=== PATIENT | female | born 1945 | race Caucasian/White ===

== ENCOUNTER → 2017-09-22 | Outpatient (CLI) | payer MEDICARE ==
[~2017-09-22] MED LIST: B-121000 MCG PO; D3 DOTS2000 UNIT PO; JENTADUETO 2.51 EAC1 PO; LISINOPRIL2.5 MG PO; NORVASC5 MG PO; REGADENOSON 0.4 MG/5 ML SYR IV ONE; SIMVASTATIN80 MG PO; ZOCOR5 MG PO
--- NOTE | 2017-09-22 18:59 | Cardiology Report ---
DATE OF STUDY: September 22, 2017 LEXISCAN NUCLEAR STRESS TEST INDICATION: Chest pain. DESCRIPTION OF PROCEDURE: After informed consent, patient brought to the stress lab. She was given 10.9 mCi of technetium 99 Myoview, and myocardial perfusion SPECT images were obtained in the horizontal long-axis, short-axis and vertical long-axis views. Subsequently patient was given 0.4 mg Lexiscan over 10 seconds. Patient was given 32.7 mCi of technetium 99 Myoview intravenously and myocardial perfusion SPECT images were obtained in the horizontal long-axis, short-axis and vertical long-axis views. Gating images were also obtained. Patient tolerated the procedure without any complications. REPORT: Baseline EKG shows sinus rhythm at 77 beats per minute. Normal axis, normal intervals and no acute ST-T changes. PARAMETERS 1. Resting heart rate is 90 beats per minute. 2. Maximum heart rate is 130 beats per minute. 3. Resting blood pressure is 118/52 mmHg. 4. Maximum blood pressure 145/57 mmHg. REASON FOR TERMINATION: End point attained. INTERPRETATION 1. Negative chest pain. 2. Negative for arrhythmias. 3. Blood pressure response consistent with Lexiscan. 4. Borderline ST-T changes seen during Lexiscan infusion compared to baseline. 5. Analysis of SPECT images reveals uniform radioisotope uptake in all segments of myocardium without any significant perfusion defects. CONCLUSIONS: 1. No evidence of significant ischemia or infarction on this study. 2. No wall motion abnormalities. 3. Overall ejection fraction is 74%. Job#: [id number]
== END ==
LOC: NM 07:38
DX: Z82.49 Family history of ischemic heart disease and other diseases of the circulatory system (principal)
CPT/HCPCS: 36415; 78452; 82948; 93017; A9502

== ENCOUNTER 2019-04-26 11:12 | Emergency (ER) | payer MEDICARE ==
[~2019-04-26] VITALS: Ht 157.5 cm; Wt 53.5 kg
[~2019-04-26 11:12] MED LIST changes: -REGADENOSON 0.4 MG/5 ML SYR IV ONE
--- OUTSIDE RECORDS SUMMARY | 2019-04-26 11:16 | XMS REPORT ---
Author Author [facility] Address Unknown Phone Unavailable Care Team Providers Care Office Employee Name Role Phone JEREMY CASTILLO Unavailable Unavailable Problems This patient has no known problems. Allergies, Adverse Reactions, Alerts This patient has no known allergies or adverse reactions. Medications This patient has no known medications. Results Test Description Test Time Test Comments Text Results Atomic Results Result Comments Stress Test - Treadmill ONLY [place] [address] Patient Name : MELINA MANN MR #: [id number] : 1945 Age/Sex: 72/F Adm Physician : JEREMY CASTILLO MD Admit Date : Location : ID Room/Bed : REPORT: Cardiology Report DATE OF STUDY: September 22, 2017 LEXISCAN NUCLEAR STRESS TEST INDICATION: Chest pain. DESCRIPTION OF PROCEDURE: After informed consent, patient brought to the stress lab. She was given 10.9 mCi of technetium 99 Myoview, and myocardial perfusion SPECT images were obtained in the horizontal long-axis, short-axis and vertical long-axis views. Subsequently patient was given 0.4 mg Lexiscan over 10 seconds. Patient was given 32.7 mCi of technetium 99 Myoview intravenously and myocardial perfusion SPECT images were obtained in the horizontal long-axis, short-axis and vertical long-axis views. Gating images were also obtained. Patient tolerated the procedure without any complications. REPORT: Baseline EKG shows sinus rhythm at 77 beats per minute. Normal axis, normal intervals and no acute ST-T changes. PARAMETERS 1. Resting heart rate is 90 beats per minute. 2. Maximum heart rate is 130 beats per minute. 3. Resting blood pressure is 118/52 mmHg. 4. Maximum blood pressure 145/57 mmHg. REASON FOR TERMINATION: End point attained. INTERPRETATION 1. Negative chest pain. 2. Negative for arrhythmias. 3. Blood pressure response consistent with Lexiscan. 4. Borderline ST-T changes seen during Lexiscan infusion compared to baseline. 5. Analysis of SPECT images reveals uniform radioisotope uptake in all segments of myocardium without any significant perfusion defects. CONCLUSIONS: 1. No evidence of significant ischemia or infarction on this study. 2. No wall motion abnormalities. 3. Overall ejection fraction is 74%. Job#: [id number] Signature Date Dictated By: JEREMY CASTILLO MD Transcribed By: JEREMY on 09/22/17 <Electronically signed by JEREMY CASTILLO MD><<Signature on File>>09/23/17 0957 COPY TO:
--- NOTE | 2019-04-26 12:34 | Diagnostic Imaging Report ---
CT BRAIN WO HISTORY: Fall COMPARISON: Report from head CT dated 07/10/2015 Technique: Noncontrast axial scans were obtained from skull base to the vertex. Coronal and sagittal reconstructions obtained from the axial data. One or more of the following dose reduction techniques were used: Automated exposure control, adjustment of the mA and/or kV according to patient size, and/or utilization of iterative reconstruction technique. DISCUSSION: Scalp/Skull: Small right frontal scalp hematoma is not associated with a calvarial fracture. Brain sulci: Mildly prominent. Ventricles: Compensatory dilatation. Extra-axial spaces: No masses or fluid collections. Carotid siphon calcifications are present. Parenchyma: Mild to moderate bilateral deep white matter hypodensity is likely chronic microvascular ischemic change. Multiple old lacunar infarcts along the right hawkins radiata, upper right insula, and right inferior parietal lobule may be from watershed ischemia. Otherwise, no masses, hemorrhage, or large vascular territory acute infarct. Dural sinuses: No abnormal densities. Sellar/Suprasellar region: Intact. Skull base: Intact. Incidental findings: None. IMPRESSION: 1. No acute intracranial abnormalities. 2. Mild to moderate supratentorial chronic microvascular ischemic change. Mild generalized cerebral and cerebellar volume loss. 3. Multiple old lacunar infarcts along the right hawkins radiata, upper right insula, and right inferior parietal lobule may be from remote/chronic watershed ischemia. Signed by: Dr. Mo Watkins M.D. on 04/26/2019 12:31 PM
--- NOTE | 2019-04-26 12:36 | Diagnostic Imaging Report ---
CT CERVICAL SPINE WO HISTORY: Fall COMPARISON: Concurrent head CT; report from cervical spine CT dated 07/10/2015 TECHNIQUE: CT of the cervical spine without contrast. Sagittal and coronal reformations were created. One or more of the following dose reduction techniques were used: Automated exposure control, adjustment of the mA and/or kV according to patient size, and/or utilization of iterative reconstruction technique. FINDINGS: Mild bone demineralization limits evaluation. Cervical lordosis is straightened. There is no significant scoliosis. No definite acute fracture or compression deformity is seen. The craniocervical junction is intact. No gross spinal canal masses are seen. The paravertebral and paraspinal soft tissues are unremarkable. Mild to moderate multilevel spondylosis is most prominent at C5-C6. Minimal grade 1 anterolisthesis of C6 on C7 and C7 on T1 is due to facet arthrosis. Mild atlantoaxial arthrosis is present as well. There is scarring in the lung apices. Mild to moderate bilateral carotid bulb calcified plaque is present. IMPRESSION: 1. No acute osseous abnormalities. 2. Mild to moderate multilevel spondylosis, most prominent at C5-C6. Signed by: Dr. Mo Watkins M.D. on 04/26/2019 1:00 PM
[2019-04-26 13:46] VITALS: BP 143/67
== END 2019-04-26 13:47 | disposition home or self-care (01) ==
LOC: ER 11:12
DX: S01.111A Laceration without foreign body of right eyelid and periocular area, initial encounter (principal); W01.198A Fall on same level from slipping, tripping and stumbling with subsequent striking against other object, initial encounter; Y92.008 Other place in unspecified non-institutional (private) residence as the place of occurrence of the external cause; E11.9 Type 2 diabetes mellitus without complications; E78.5 Hyperlipidemia, unspecified; E03.9 Hypothyroidism, unspecified
CPT/HCPCS: 70450; 72125; 99283

== ENCOUNTER 2019-04-30 10:00 | Inpatient (IN) | payer MEDICARE ==
[~2019-04-30] VITALS: Ht 157.5 cm; Wt 59.9 kg
[2019-04-30] MEDS ORDERED: VITAMIN D34000 UNIT PO (10:25)
[2019-04-30] MEDS ORDERED: ATORVASTATIN CA20 MG PO (10:25)
[2019-04-30] MEDS ORDERED: LEVEMIR100 UNIT/1 SQ (10:25)
[2019-04-30] MEDS ORDERED: LEVOTHYROXINE25 MCG PO (10:25)
[2019-04-30] MEDS ORDERED: FERROUS SULFAT325 MG PEG (10:25)
[2019-04-30] MEDS ORDERED: SODIUM CHLORIDE 0.9% 500ML 500 ML IV STA (10:57)
[2019-04-30 11:54] LABS: BASOPHILS % 0.3 % (0.0-1.0); EOSINOPHILS % 0.2 % (0.0-6.0); HEMATOCRIT 41.5 % (34.2-44.1); HEMOGLOBIN 13.2 g/dL (12.0-16.0); LYMPHOCYTES % 8.3 % (18.0-39.1); MEAN CORPUSCULAR HEMOGLOBIN 26.3 pg (28-32); MEAN CORPUSCULAR HGB CONC 31.8 g/dL (31-35); MEAN CORPUSCULAR VOLUME 82.8 fL (81-99); MONOCYTES # (AUTO) 0.5 (0.2-0.8); MONOCYTES % 4.3 % (4.4-11.3); NEUTROPHILS # (AUTO) 10.6 (2.1-6.9); NEUTROPHILS % 86.7 % (38.7-80.0); PLATELET COUNT 240 x10e3/uL (140-360); RED BLOOD COUNT 5.01 x10e6/uL (3.6-5.1); RED CELL DISTRIBUTION WIDTH 14.6 % (11.7-14.4)
--- NOTE | 2019-04-30 11:58 | Diagnostic Imaging Report ---
Examination: Single AP view of the chest. COMPARISON: None. INDICATION: Weakness DISCUSSION: Lungs are well-inflated and without focal consolidation, pleural effusion, or pneumothorax. Bilateral calcified granulomata and calcified left hilar lymph nodes. Otherwise normal cardiomediastinal contour with the exception of mild tortuosity of the thoracic aorta. No acute osseous abnormality. IMPRESSION: 1. No acute cardiopulmonary abnormalities. Signed by: Dr. Mc Leger M.D. on 04/30/2019 11:54 AM
[2019-04-30 12:27] LABS: INR 0.88; PROTHROMBIN TIME 12.4 seconds (11.9-14.5)
[2019-04-30 12:28] LABS: PARTIAL THROMBOPLASTIN TIME 25.4 seconds (23.8-35.5)
[2019-04-30 12:38] LABS: ALBUMIN/GLOBULIN RATIO 1.1 (0.8-2.0); ANION GAP 15.6 mmol/L (8-16); CALCIUM 10.4 mg/dL (8.4-10.2); CREATININE, SERUM 1.13 mg/dL (0.57-1.11); POTASSIUM 3.6 mmol/L (3.5-5.1)
[2019-04-30 12:46] LABS: CREATINE KINASE MB 2.6 ng/mL (0-5.0)
[2019-04-30 12:56] LABS: BILIRUBIN,URINE SMALL (NEGATIVE); CLARITY,URINE CLEAR (CLEAR); COLOR,URINE YELLOW (YELLOW); KETONES,URINE 1+ (NEGATIVE); LEUKOCYTE ESTERASE ,URINE NEGATIVE (NEGATIVE); NITRITE,URINE NEGATIVE (NEGATIVE); PROTEIN,URINE DIPSTICK 1+ (NEGATIVE); URINE UROBILINOGEN 0.2 mg/dL (0.2 - 1)
[2019-04-30 13:00] LABS: RBC,URINE 21-50 /HPF (0-5); WBC,URINE (MAN) 0-5 /HPF (0-5)
[2019-04-30 13:01] LABS: BACTERIA,URINE FEW /HPF; EPITHELIAL CELLS,URINE FEW /LPF
--- NOTE | 2019-04-30 14:56 | Diagnostic Imaging Report ---
EXAMINATION: CT of the abdomen and pelvis without contrast. TECHNIQUE: Spiral CT images of the abdomen and pelvis were performed from the lung bases to the lesser trochanters. No intravenous contrast was given per renal stone protocol. Coronal and sagittal reformatted images were obtained. COMPARISON: None. CLINICAL HISTORY:Weakness, hematuria DISCUSSION: ABSENCE OF INTRAVENOUS CONTRAST DECREASES SENSITIVITY FOR DETECTION OF FOCAL LESIONS AND VASCULAR PATHOLOGY. ABDOMEN/PELVIS: LOWER THORAX: Subsegmental atelectasis in the dependent lower lobes. HEPATOBILIARY:1.1 cm cyst in segment 4A. No additional focal hepatic lesion. No intrahepatic biliary ductal dilatation. The gallbladder is collapsed around radiopaque calculi. No pericholecystic inflammation. SPLEEN: Multiple calcified granulomata. PANCREAS: No focal masses or ductal dilatation. ADRENALS: No adrenal nodules. KIDNEYS/URETERS: 4 mm calculus within the left upper pole collecting system seen on coronal image 39. No additional renal, ureteral, or bladder calculi. Moderate bilateral hydronephrosis with normal caliber ureters. No focal renal mass lesions. PELVIC ORGANS/BLADDER: Urinary bladder is unremarkable. Uterus is retroflexed with multiple coarse calcifications likely representing degenerated fibroids. No adnexal mass. PERITONEUM/RETROPERITONEUM: No ascites or pneumoperitoneum. LYMPH NODES: No pelvic sidewall, retroperitoneal, or mesenteric lymphadenopathy. VESSELS: Limited evaluation without intravenous contrast. Atherosclerotic calcification of the abdominal aorta without aneurysmal dilatation. GI TRACT: The large bowel shows no evidence of distention or wall thickening. Gas and fecal material are noted throughout. The appendix is normal.. The stomach is collapsed with prominent rugal folds. Disproportionate wall thickening of the gastric antrum/lower region as seen on series 3 image 42. No small bowel dilatation to suggest obstruction. BONES AND SOFT TISSUES: Diffuse osteopenia. Postsurgical changes related to operative fixation of the proximal right femur result in streak artifact limiting evaluation of the pelvis. No osseous destructive lesions. No focal soft tissue abnormalities. IMPRESSION: 4 mm nonobstructing left upper pole renal calculus. Moderate bilateral hydronephrosis without hydroureter or obstructing calculus identified. 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 Multiple bilateral peripelvic cysts mimicking hydronephrosis is an additional though less likely consideration. CT urogram may be obtained on a nonemergent basis for further evaluation if clinically warranted. Cholelithiasis without CT findings of acute cholecystitis. Disproportionate wall thickening of the gastric antrum and pylorus may relate to underdistention. However, gastritis is an additional consideration. Upper endoscopy should be considered for further evaluation. Signed by: Dr. Mc Leger M.D. on 04/30/2019 2:52 PM
[2019-04-30] MEDS ORDERED: DEXTROSE 50% SYRINGE 50 ML IV PRN (15:15)
[2019-04-30] MEDS ORDERED: ONDANSETRON HCL INJ 2MG/ML 2ML 2 MG/ML VIAL IV PRN (15:15)
[2019-04-30] MEDS: SODIUM CHLORIDE 0.9% 1000ML 1,000 ML IV SCH (15:33)
[2019-04-30] MEDS: INSULIN LISPRO 100 UNIT/1 ML 3ML VIAL SQ SCH ×2 (16:15→21:00)
[2019-04-30 16:30] VITALS: BP 174/72
[2019-04-30 16:37] VITALS: BP 174/72
--- NOTE | 2019-04-30 17:27 | NUR ---
Patients blood sugar 54, after dinner, patient given additional juice, will recheck in 1 hour, patient alert and asyptomatic
[2019-04-30 17:35] VITALS: BP 174/72
[2019-04-30 20:00] VITALS: BP 147/65
[2019-04-30 21:03] LABS: CREATINE KINASE MB 2.3 ng/mL (0-5.0)
[2019-04-30 21:47] VITALS: BP 147/65
[2019-04-30 21:48] VITALS: BP 147/65
[2019-05-01] VITALS (8 sets, daily range): BP systolic 131–168; BP diastolic 60–67
[2019-05-01] MEDS: SODIUM CHLORIDE 0.9% 1000ML 1,000 ML IV SCH ×4 (00:45→21:10)
--- NOTE | 2019-05-01 05:40 | NUR ---
Patient transferred to room 113.
[2019-05-01 05:47] LABS: BASOPHILS # (AUTO) 0.1 (0.0-0.1); BASOPHILS % 0.4 % (0.0-1.0); EOSINOPHILS # (AUTO) 0.1 (0.0-0.4); HEMOGLOBIN 10.9 g/dL (12.0-16.0); LYMPHOCYTES # (AUTO) 1.9 (1.0-3.2); MEAN CORPUSCULAR HEMOGLOBIN 25.8 pg (28-32); MEAN CORPUSCULAR HGB CONC 30.3 g/dL (31-35); MEAN CORPUSCULAR VOLUME 85.1 fL (81-99); MONOCYTES # (AUTO) 0.7 (0.2-0.8); NEUTROPHILS # (AUTO) 8.5 (2.1-6.9); NEUTROPHILS % 75.1 % (38.7-80.0); PLATELET COUNT 202 x10e3/uL (140-360); RED BLOOD COUNT 4.23 x10e6/uL (3.6-5.1); RED CELL DISTRIBUTION WIDTH 14.5 % (11.7-14.4)
[2019-05-01 06:42] LABS: CREATINE KINASE MB 1.4 ng/mL (0-5.0)
[2019-05-01 07:01] LABS: ALBUMIN/GLOBULIN RATIO 1.2 (0.8-2.0); ANION GAP 14.2 mmol/L (8-16); CALCIUM 8.7 mg/dL (8.4-10.2); CREATININE, SERUM 0.93 mg/dL (0.57-1.11); POTASSIUM 3.2 mmol/L (3.5-5.1)
[2019-05-01] MEDS: INSULIN LISPRO 100 UNIT/1 ML 3ML VIAL SQ SCH ×4 (07:30→19:57)
--- NOTE | 2019-05-01 08:18 | NUR ---
H&P cc: weakness and fall HPI: 74yoF, PCP DrOrahood, developed weakness, unable to get up from cough. Pt fell 4 day sprior, with trauma ot right scalp. Lives alone. Urine output unchanged. PM: DM, HTN, HLD, hypothyroidism, hip PShx: hip, nose Allergies see emr Fh/Sh; single; no etoh/cigs; lives alone med;s see MAR ROS; no f/c/s/N/V/D/WALKER/vision changes/cp/sob/skin rash V/S; revd PE tired appearing right periorbital region with bruising ns1s2 mod bs soft nt nd no e/t a&ox3; alonso skin dry n. affect labs/meds; revd A/P: OPAL Hypokalemia Left nephrolithiasis 4mm B/L hydronephrosis; chronic outlet obx? Fall Cholelithiasis Dm HTn Hypothyroidism PLAN IVF; Replace K CT brain PT consult I/O Prop: scd Dispo; f/u Hunter huizar MD, PhD.
[2019-05-01] MEDS: LEVOTHYROXINE SODIUM 25 MCG TABLET PO SCH (08:54)
[2019-05-01] MEDS: FERROUS SULFATE 325 MG TAB PEG SCH (08:54)
[2019-05-01 09:13] LABS: CHOL/HDL RATIO 3.6 (3.0-3.6)
--- NOTE | 2019-05-01 19:17 | NUR ---
PATIENT REFUSED SCD'S
[2019-05-01] MEDS: INSULIN GLARGINE 100 UNITS/ML VIAL SQ SCH (20:37)
[2019-05-01] MEDS: ATORVASTATIN 20 MG TAB PO SCH (20:37)
[2019-05-02] VITALS (7 sets, daily range): BP systolic 135–159; BP diastolic 59–74
[2019-05-02] MEDS: LEVOTHYROXINE SODIUM 25 MCG TABLET PO SCH (05:44)
--- NOTE | 2019-05-02 07:25 | NUR ---
IM- progress note O/N no events ROS; no f/c/s/N/V/D/WALKER/vision changes/cp/sob/skin rash V/S; revd PE tired appearing right periorbital region with bruising ns1s2 mod bs soft nt nd no e/t a&ox3; alonso skin dry n. affect labs/meds; revd A/P: OPAL Hypokalemia Left nephrolithiasis 4mm B/L hydronephrosis; chronic outlet obx? Fall Cholelithiasis Dm HTn Hypothyroidism PLAN IVF; Replace K CT brain PT consult I/O Prop: scd Dispo; f/u improving; f/u labs; Hunter Perez MD, PhD.
[2019-05-02] MEDS ORDERED: BISACODYL 5 MG TAB EC PO ONE (07:55)
[2019-05-02] MEDS: SODIUM CHLORIDE 0.9% 1000ML 1,000 ML IV SCH ×2 (07:59→17:35)
[2019-05-02 08:10] LABS: BASOPHILS # (AUTO) 0.1 (0.0-0.1); BASOPHILS % 0.5 % (0.0-1.0); EOSINOPHILS # (AUTO) 0.2 (0.0-0.4); EOSINOPHILS % 1.5 % (0.0-6.0); HEMATOCRIT 38.2 % (34.2-44.1); HEMOGLOBIN 12.2 g/dL (12.0-16.0); LYMPHOCYTES % 19.2 % (18.0-39.1); MEAN CORPUSCULAR HEMOGLOBIN 26.3 pg (28-32); MEAN CORPUSCULAR HGB CONC 31.9 g/dL (31-35); MEAN CORPUSCULAR VOLUME 82.5 fL (81-99); MONOCYTES # (AUTO) 0.6 (0.2-0.8); NEUTROPHILS # (AUTO) 7.4 (2.1-6.9); NEUTROPHILS % 72.5 % (38.7-80.0); PLATELET COUNT 210 x10e3/uL (140-360); RED BLOOD COUNT 4.63 x10e6/uL (3.6-5.1); RED CELL DISTRIBUTION WIDTH 14.4 % (11.7-14.4)
[2019-05-02 08:30] LABS: ANION GAP 11.5 mmol/L (8-16); BLOOD UREA NITROGEN 15 mg/dL (7-26); BUN/CREATININE RATIO 17 (6-25); CALCIUM 8.9 mg/dL (8.4-10.2); CARBON DIOXIDE 21 mmol/L (22-29); CHLORIDE 112 mmol/L (98-107); EST GLOMERULAR FILTRATION RATE > 60 ML/MIN (60-); GLUCOSE 152 mg/dL (74-118); POTASSIUM 3.5 mmol/L (3.5-5.1); SODIUM 141 mmol/L (136-145)
[2019-05-02] MEDS: FERROUS SULFATE 325 MG TAB PEG SCH (10:37)
[2019-05-02] MEDS ORDERED: ONDANSETRON HCL 4 MG ORAL DISINTEGRATING TAB PO PRN (11:00)
[2019-05-02] MEDS: INSULIN LISPRO 100 UNIT/1 ML 3ML VIAL SQ SCH ×4 (11:04→20:40)
--- NOTE | 2019-05-02 20:12 | NUR ---
RECEIVED PT IN BEDAOX3 VERY WEAK RESPIRATIONS ARE EVEN AND UNLABORED RT FA20 G NS AT 100.CALL LIGHT WITH IN REACH .CONTINUE TO MONITOR
[2019-05-02] MEDS: INSULIN GLARGINE 100 UNITS/ML VIAL SQ SCH (20:41)
[2019-05-02] MEDS: ATORVASTATIN 20 MG TAB PO SCH (20:46)
[2019-05-03] VITALS (7 sets, daily range): BP systolic 138–159; BP diastolic 67–92
[2019-05-03] MEDS: SODIUM CHLORIDE 0.9% 1000ML 1,000 ML IV SCH ×2 (03:10→13:36)
--- NOTE | 2019-05-03 05:41 | NUR ---
D/C summary Principal Dx: OPAL Hypokalemia Left nephrolithiasis 4mm B/L hydronephrosis; chronic outlet obx? Fall Cholelithiasis Secondary Dx: Dm HTn Hypothyroidism PLAN IVF; Replace K CT brain PT consult I/O Prop: scd Dispo; f/u improving; f/u labs; Hba1c/LDL 8.2/72 d/c home f/u pcp 1 week and 5-7 days stable d/c>35mins Hunter Perez MD, PhD.
--- NOTE | 2019-05-03 05:50 | NUR ---
D/C summary Principal dx: OPAL Hypokalemia Left nephrolithiasis 4mm B/L hydronephrosis; chronic outlet obx? Fall Cholelithiasis severe physical deconditioning SEconary Dx: Dm HTn Hypothyroidism PLAN IVF; Replace K CT brain PT consult I/O Prop: scd Dispo; f/u improving; f/u labs; 05/03 severe physical deconditioning- hold d/c; SNF eval; check stool - new diarrhea? d/c to snf f/u pcp 1 week stable d/c>35mins Hunter Perez MD, PhD.
[2019-05-03] MEDS: LEVOTHYROXINE SODIUM 25 MCG TABLET PO SCH (06:00)
--- NOTE | 2019-05-03 06:13 | NUR ---
HAS SEEN THE PT NOW AND PT HAS DIARRHEA .ORDERED C-DIFF AND FLAGYL PT HAS DIFFICULTY WALKING CALL LIGHT WITH IN REACH .CONTINUE TO MONITOR
[2019-05-03] MEDS: METRONIDAZOLE 500MG/NS 100ML 100 ML IV SCH ×2 (06:56→13:33)
--- NOTE | 2019-05-03 07:25 | NUR ---
upon rounds pt asleep resp even and unlabored at this time no distress noted, pt easily aroused to name, call light in reach.
--- NOTE | 2019-05-03 07:53 | NUR ---
BEDSIDE REPORT GIVEN ON COMING TO THE REPORT
[2019-05-03] MEDS: FERROUS SULFATE 325 MG TAB PEG SCH (08:42)
[2019-05-03] MEDS: INSULIN LISPRO 100 UNIT/1 ML 3ML VIAL SQ SCH ×3 (10:52→17:14)
--- NOTE | 2019-05-03 11:52 | NUR ---
SIGNED CHOICE FOR [facility] JEN GRANADOS PICKED UP CLINICALS WILL REVIEW
--- NOTE | 2019-05-03 14:10 | NUR ---
FAXED HEAD CT TO FACILITY
--- NOTE | 2019-05-03 16:47 | NUR ---
[facility] FACILITY DISCHARGE INFORMATION PATIENT HAS BEEN ACCEPTED TO: NAME: [facility] [address]: [id number] [place] [address] ACCEPTING LASERIST: N/A ACCEPTING MD: ROOM: 312B NURSE CALL REPORT TO: [phone] IMM SIGNED AND OBTAINED (if applicable): THE FOLLOWING DOCUMENTS MUST ACCOMPANY PATIENT FOR TRANSFER: COPIED CHART: SANITARY PLUMBER RTF: ZOEY WHITE [id number] DNR: N/A
--- NOTE | 2019-05-03 17:50 | NUR ---
report called to Ema at [facility], pt going to room 213 b.
--- NOTE | 2019-05-03 19:30 | NUR ---
report given to on coming nurse, pt stable at this time.
--- NOTE | 2019-05-03 19:51 | NUR ---
RECEIVED PT IN BED AOX2 .NO ACUTE DISTRESS NOTED PLAN TO DIS CHARGE THE PT WITH IV FOR ABT .CALL LIGHT WITH IN REACH .CONTINUE TO MONITOR
--- NOTE | 2019-05-03 20:37 | NUR ---
PT IS DISCHARGED TO [facility] .AMBULANCE HAS TAKEN THE PT .
== END 2019-05-03 20:24 | DRG 684 ==
LOC: ER 10:00 → ERHOLD 15:18 → IMCU 16:11 → MED/SURG 05-01 05:33 → MED/SURG3 05-02 14:51 → OBSVTOIN 05-03 05:49
PROVIDERS: ADMIT Internal Medicine; ATTEND Internal Medicine
DX: N17.9 Acute kidney failure, unspecified (principal); E86.0 Dehydration; E11.9 Type 2 diabetes mellitus without complications; E78.5 Hyperlipidemia, unspecified; E03.9 Hypothyroidism, unspecified; R53.1 Weakness; I10 Essential (primary) hypertension; E87.6 Hypokalemia; K80.20 Calculus of gallbladder without cholecystitis without obstruction; Z88.5 Allergy status to narcotic agent; Z88.8 Allergy status to other drugs, medicaments and biological substances; Z83.3 Family history of diabetes mellitus; Z82.49 Family history of ischemic heart disease and other diseases of the circulatory system; Z91.81 History of falling; Z87.448 Personal history of other diseases of urinary system; N13.39 Other hydronephrosis
CPT/HCPCS: 36415; 71045; 74176; 80048; 80053; 80061; 81001; 82550; 82553; 82948; 83036; 83735; 84443; 84484; 85025; 85610; 85730; 87493; 93005; 97139; 99284; G0378; J7030; J7040

== ENCOUNTER 2019-06-30 13:54 | Inpatient (IN) | payer MEDICARE ==
[~2019-06-30] VITALS: Ht 157.5 cm; Wt 59.9 kg
[~2019-06-30 13:54] MED LIST changes: +ATORVASTATIN CA20 MG PO; +FERROUS SULFAT325 MG PEG; +LEVEMIR100 UNIT/1 SQ; +LEVOTHYROXINE25 MCG PO; +VITAMIN D34000 UNIT PO
[2019-06-30 15:12] LABS: HEMOGLOBIN 14.2 g/dL (12.0-16.0); RED BLOOD COUNT 5.32 x10e6/uL (3.6-5.1)
[2019-06-30 15:13] LABS: BASOPHILS % 0.2 % (0.0-1.0); HEMATOCRIT 44.5 % (34.2-44.1); LYMPHOCYTES # (AUTO) 0.6 (1.0-3.2); LYMPHOCYTES % 4.1 % (18.0-39.1); MEAN CORPUSCULAR HEMOGLOBIN 26.7 pg (28-32); MEAN CORPUSCULAR HGB CONC 31.9 g/dL (31-35); MEAN CORPUSCULAR VOLUME 83.6 fL (81-99); MONOCYTES # (AUTO) 0.4 (0.2-0.8); MONOCYTES % 2.6 % (4.4-11.3); NEUTROPHILS # (AUTO) 14.5 (2.1-6.9); NEUTROPHILS % 92.5 % (38.7-80.0); PLATELET COUNT 242 x10e3/uL (140-360); RED CELL DISTRIBUTION WIDTH 14.8 % (11.7-14.4)
[2019-06-30 15:35] LABS: ALBUMIN 4.2 g/dL (3.5-5.0); ALBUMIN/GLOBULIN RATIO 1.1 (0.8-2.0); BLOOD UREA NITROGEN 16.48 mg/dL (7-26); CALCIUM 10.2 mg/dL (8.4-10.2); CREATININE, SERUM 1.82 mg/dL (0.57-1.11)
[2019-06-30] MEDS ORDERED: SODIUM CHLORIDE 0.9% 1000ML 1,000 ML IV STA (18:40)
[2019-06-30 20:16] LABS: CLARITY,URINE SL CLOUDY (CLEAR); COLOR,URINE YELLOW (YELLOW); LEUKOCYTE ESTERASE ,URINE NEGATIVE (NEGATIVE); NITRITE,URINE NEGATIVE (NEGATIVE); PROTEIN,URINE DIPSTICK 1+ (NEGATIVE)
[2019-06-30 20:17] LABS: BILIRUBIN,URINE NEGATIVE (NEGATIVE); KETONES,URINE 1+ (NEGATIVE); URINE UROBILINOGEN 0.2 mg/dL (0.2 - 1)
[2019-06-30 20:23] LABS: BACTERIA,URINE MODERATE /HPF; EPITHELIAL CELLS,URINE FEW /LPF; WBC,URINE (MAN) 0-5 /HPF (0-5)
--- NOTE | 2019-06-30 20:23 | Diagnostic Imaging Report ---
EXAM: ABDOMEN 2 VIEW DATE: 06/30/2019 6:40 PM INDICATION: ^r/o constipation ^[id number] ^1900 COMPARISON: CT abdomen/pelvis, 04/30/2019 FINDINGS: 2 views of the abdomen were obtained supine and upright. There is nonspecific distribution of air in the small and large bowel with moderate retained stool mainly in the left colon. No pneumoperitoneum. Small left renal calculus described on the CT is not seen on the plain radiographs. Right upper quadrant calcification may represent gallstone as noted on previous CT. Lung bases clear. Surgical hardware is seen in the right hip. IMPRESSION: No evidence for bowel dilatation or bowel obstruction. No pneumoperitoneum. Moderate retained stool in the left colon may signify constipation. Signed by: Dr. Isael Taylor M.D. on 06/30/2019 8:19 PM
[2019-06-30] MEDS ORDERED: ONDANSETRON HCL INJ 2MG/ML 2ML 2 MG/ML VIAL IV ONE (20:30)
[2019-06-30] MEDS ORDERED: SODIUM CHLORIDE 0.9% 500ML 500 ML IV ONE (20:30)
[2019-06-30] MEDS ORDERED: CEFTRIAXONE SOD 1 GM/NS 50 ML 50 ML IV SCH (20:45)
[2019-06-30] MEDS ORDERED: DEXTROSE 50% SYRINGE 50 ML IV PRN (20:45)
[2019-06-30] MEDS ORDERED: SODIUM CHLORIDE 0.9% 1000ML 1,000 ML IV ONE (20:45)
[2019-06-30 23:40] VITALS: BP 130/89
[2019-07-01] VITALS (8 sets, daily range): BP systolic 114–145; BP diastolic 56–75
[2019-07-01] MEDS ORDERED: SODIUM CHLORIDE 0.9% 1000ML 1,000 ML ONE (00:40)
[2019-07-01] MEDS: INSULIN LISPRO 100 UNIT/1 ML 3ML VIAL SQ SCH ×5 (01:08→20:38)
[2019-07-01 01:25] LABS: CREATINE KINASE MB 2.7 ng/mL (0-5.0)
[2019-07-01 05:22] LABS: BASOPHILS % 0.2 % (0.0-1.0); EOSINOPHILS # (AUTO) 0.1 (0.0-0.4); EOSINOPHILS % 0.6 % (0.0-6.0); HEMATOCRIT 39.2 % (34.2-44.1); HEMOGLOBIN 12.1 g/dL (12.0-16.0); LYMPHOCYTES # (AUTO) 1.2 (1.0-3.2); LYMPHOCYTES % 5.3 % (18.0-39.1); MEAN CORPUSCULAR HEMOGLOBIN 26.4 pg (28-32); MEAN CORPUSCULAR HGB CONC 30.9 g/dL (31-35); MEAN CORPUSCULAR VOLUME 85.4 fL (81-99); MONOCYTES # (AUTO) 1.4 (0.2-0.8); MONOCYTES % 6.2 % (4.4-11.3); NEUTROPHILS % 86.8 % (38.7-80.0); PLATELET COUNT 213 x10e3/uL (140-360); RED BLOOD COUNT 4.59 x10e6/uL (3.6-5.1)
[2019-07-01 05:42] LABS: ALBUMIN 3.4 g/dL (3.5-5.0); ALBUMIN/GLOBULIN RATIO 1.1 (0.8-2.0); CALCIUM 8.8 mg/dL (8.4-10.2); CREATININE, SERUM 1.58 mg/dL (0.57-1.11)
[2019-07-01 06:21] LABS: CREATINE KINASE MB 1.6 ng/mL (0-5.0)
--- NOTE | 2019-07-01 06:21 | NUR ---
H&P cc: fatigue HPI: 74yoF, PCP DrOrahood, developed fatigue after vomiting for 2 days. Recently d/c from SNF. Found to be dehydrated. PM: DM2, HTN, HLD, hypothyroidism, hip, hypokalemmia, nephrolithiasis, B/L hydronephrosis, physical deconditioning PShx: hip, nose Allergies see emr Fh/Sh; single; no etoh/cigs; lives alone med;s see MAR ROS; no f/c/s/N/V/D/WALKER/vision changes/cp/sob/skin rash V/S; revd PE tired appearing anicteric ns1s2 mod bs soft Mild diffuse tenderness; nd no e/t a&ox3; alonso skin dry n. affect labs/meds; revd A/P: Acute Likely Bacterial Gastroenteritis OPAL Metabolic acidosis Dehydration Hx B/L hydronoephrosis DM2 Hypothyroidism PLAN IVF; IV abx PT consult Home meds Prop: heparin/pepcid Dispo; f/u Hunter Perez MD, PhD.
--- NOTE | 2019-07-01 07:05 | NUR ---
Patient laying in bed with HOB elevated greater than 30 degrees. Respirations are even and unlabored. Fluids infusing through the PIV, with no complications. Not nauseous at this moment. Bed low, wheels locked, side rails up and call light within reach.
[2019-07-01 07:09] LABS: CHOL/HDL RATIO 2.8 (3.0-3.6)
[2019-07-01] MEDS: PIPER-TAZ 3.375 GM 50 ML IV SCH ×4 (08:45→23:38)
[2019-07-01] MEDS: LEVOTHYROXINE SODIUM 25 MCG TABLET PO SCH (09:03)
[2019-07-01] MEDS: FERROUS SULFATE 325 MG TAB PEG SCH (09:04)
[2019-07-01] MEDS: ATORVASTATIN 20 MG TAB PO SCH (09:04)
[2019-07-01] MEDS: ONDANSETRON HCL INJ 2MG/ML 2ML 2 MG/ML VIAL IV PRN (09:13)
[2019-07-01 14:01] LABS: CREATINE KINASE MB 1.6 ng/mL (0-5.0)
--- NOTE | 2019-07-01 15:50 | NUR ---
PT'S O2 SAT DROPPED TO 88%; PT PLACED ON 2L NC. WILL CONTINUE TO MONITOR.
--- NOTE | 2019-07-01 15:57 | NUR ---
PT'S REPEAT O2 SAT IS 93% ON 2L
[2019-07-01] MEDS ORDERED: SODIUM CHLORIDE 0.9% 250ML 250 ML ONE (18:16)
[2019-07-01] MEDS: INSULIN GLARGINE 100 UNITS/ML VIAL SQ SCH (20:36)
[2019-07-01] MEDS ORDERED: NON-FORMULARY MEDICATION (Insulin Detemir (Levemir) 20 UNITS) SQ SCH (21:00)
[2019-07-02] VITALS (9 sets, daily range): BP systolic 124–161; BP diastolic 58–70
[2019-07-02] MEDS: ONDANSETRON HCL INJ 2MG/ML 2ML 2 MG/ML VIAL IV PRN ×3 (00:54→12:21)
[2019-07-02] MEDS: PIPER-TAZ 3.375 GM 50 ML IV SCH ×4 (05:47→23:50)
[2019-07-02] MEDS: LEVOTHYROXINE SODIUM 25 MCG TABLET PO SCH (05:56)
--- NOTE | 2019-07-02 06:06 | NUR ---
MD Perez notified patient desat on room air. Oxygen saturation improved with o2 at 2l. Patient complain of constipation. Order for senna BID received.
--- NOTE | 2019-07-02 07:08 | NUR ---
received change of shift report, walking rounds completed; pt awake, alert, no acute distress; will continue to monitor.
[2019-07-02] MEDS: INSULIN LISPRO 100 UNIT/1 ML 3ML VIAL SQ SCH ×4 (07:30→21:00)
[2019-07-02] MEDS: ATORVASTATIN 20 MG TAB PO SCH (08:52)
[2019-07-02] MEDS: SENNA-S TABLET PO SCH ×2 (08:52→17:09)
[2019-07-02] MEDS: FERROUS SULFATE 325 MG TAB PEG SCH (08:52)
--- NOTE | 2019-07-02 08:59 | NUR ---
pt's oxygen saturation 95% on RA; 2L NC discontinued. will continue to monitor.
--- NOTE | 2019-07-02 09:26 | NUR ---
IM- progress note O/N no events ROS; no f/c/s/N/V/D/WALKER/vision changes/cp/sob/skin rash V/S; revd PE tired appearing anicteric ns1s2 mod bs soft Mild diffuse tenderness; nd no e/t a&ox3; alonso skin dry n. affect labs/meds; revd A/P: Acute Likely Bacterial Gastroenteritis OPAL Metabolic acidosis Dehydration Hx B/L hydronoephrosis DM2 Hypothyroidism PLAN IVF; IV abx PT consult Home meds Prop: heparin/pepcid Dispo; f/u 07/02 check labs Hunter Perez MD, PhD.
--- NOTE | 2019-07-02 09:52 | NUR ---
spoke with Dr. Perez regarding pt's improved oxygen saturation. Also discussed PT's recommendation for SNF. Dr Perez states the pt was at SNF for 6 weeks and was just sent home 1 week ago; he states he does not believe pt is appropriate for SNF at this time.
[2019-07-02 10:24] LABS: BASOPHILS # (AUTO) 0.1 (0.0-0.1); BASOPHILS % 0.3 % (0.0-1.0); HEMATOCRIT 40.6 % (34.2-44.1); HEMOGLOBIN 12.5 g/dL (12.0-16.0); LYMPHOCYTES # (AUTO) 1.1 (1.0-3.2); LYMPHOCYTES % 5.6 % (18.0-39.1); MEAN CORPUSCULAR HEMOGLOBIN 26.8 pg (28-32); MEAN CORPUSCULAR HGB CONC 30.8 g/dL (31-35); MEAN CORPUSCULAR VOLUME 87.1 fL (81-99); MONOCYTES # (AUTO) 1.1 (0.2-0.8); MONOCYTES % 5.7 % (4.4-11.3); NEUTROPHILS # (AUTO) 17.1 (2.1-6.9); NEUTROPHILS % 87.7 % (38.7-80.0); PLATELET COUNT 148 x10e3/uL (140-360); RED BLOOD COUNT 4.66 x10e6/uL (3.6-5.1); RED CELL DISTRIBUTION WIDTH 14.7 % (11.7-14.4)
[2019-07-02 10:29] LABS: ANION GAP 15.8 mmol/L (8-16); CALCIUM 8.8 mg/dL (8.4-10.2); CREATININE, SERUM 1.75 mg/dL (0.57-1.11); POTASSIUM 3.8 mmol/L (3.5-5.1)
[2019-07-02 10:30] LABS: MAGNESIUM 2.2 MG/DL (1.3-2.1); PHOSPHORUS 4.1 MG/DL (2.3-4.7)
--- NOTE | 2019-07-02 19:05 | NUR ---
Completed bedside report with morning nurse. Pt alert and orient to name. Lying in bed supine HOB 45 degrees. Denies pain at this time. Call light within reach. Bed low and locked. Bed alarm on.
--- NOTE | 2019-07-02 19:20 | NUR ---
walking rounds completed, change of shift report given to oncoming nightshift RN. pt in stable condition.
[2019-07-02] MEDS: INSULIN GLARGINE 100 UNITS/ML VIAL SQ SCH (21:00)
[2019-07-03] VITALS (7 sets, daily range): BP systolic 108–175; BP diastolic 60–74
[2019-07-03] MEDS: ONDANSETRON HCL INJ 2MG/ML 2ML 2 MG/ML VIAL IV PRN ×2 (00:30→05:00)
--- NOTE | 2019-07-03 04:19 | NUR ---
IM- progress note O/N no events ROS; no f/c/s/N/V/D/WALKER/vision changes/cp/sob/skin rash V/S; revd PE tired appearing anicteric ns1s2 mod bs soft Mild diffuse tenderness; nd no e/t a&ox3; alonso skin dry n. affect labs/meds; revd A/P: Acute Likely Bacterial Gastroenteritis OPAL Metabolic acidosis Dehydration Hx B/L hydronoephrosis DM2 Hypothyroidism PLAN IVF; IV abx PT consult Home meds Prop: heparin/pepcid Dispo; f/u 07/02 check labs 118/24 control BP with BB; check labs; Hunter Perez MD, PhD.
[2019-07-03] MEDS: LEVOTHYROXINE SODIUM 25 MCG TABLET PO SCH (05:59)
[2019-07-03] MEDS: PIPER-TAZ 3.375 GM 50 ML IV SCH ×4 (06:01→23:50)
--- NOTE | 2019-07-03 07:05 | NUR ---
received shift change report from scene shifter RN, walking rounds completed, pt resting in bed, respirations even and nonlabored, no s/s of distress.
[2019-07-03 07:10] LABS: BASOPHILS % 0.3 % (0.0-1.0); EOSINOPHILS % 0.2 % (0.0-6.0); HEMATOCRIT 36.7 % (34.2-44.1); HEMOGLOBIN 11.6 g/dL (12.0-16.0); LYMPHOCYTES % 6.5 % (18.0-39.1); MEAN CORPUSCULAR HEMOGLOBIN 26.4 pg (28-32); MEAN CORPUSCULAR HGB CONC 31.6 g/dL (31-35); MEAN CORPUSCULAR VOLUME 83.6 fL (81-99); MONOCYTES # (AUTO) 1.1 (0.2-0.8); MONOCYTES % 6.9 % (4.4-11.3); NEUTROPHILS # (AUTO) 13.2 (2.1-6.9); NEUTROPHILS % 85.5 % (38.7-80.0); PLATELET COUNT 193 x10e3/uL (140-360); RED BLOOD COUNT 4.39 x10e6/uL (3.6-5.1); RED CELL DISTRIBUTION WIDTH 14.6 % (11.7-14.4)
[2019-07-03] MEDS: INSULIN LISPRO 100 UNIT/1 ML 3ML VIAL SQ SCH ×4 (07:30→21:00)
[2019-07-03 07:37] LABS: ANION GAP 14.4 mmol/L (8-16); CALCIUM 8.6 mg/dL (8.4-10.2); CREATININE, SERUM 1.63 mg/dL (0.57-1.11); POTASSIUM 3.4 mmol/L (3.5-5.1)
[2019-07-03] MEDS: SENNA-S TABLET PO SCH ×2 (08:30→18:07)
[2019-07-03] MEDS: METOPROLOL TARTRATE 25 MG TAB PO SCH ×2 (08:30→18:07)
[2019-07-03] MEDS: ATORVASTATIN 20 MG TAB PO SCH (08:31)
[2019-07-03] MEDS: FERROUS SULFATE 325 MG TAB PEG SCH (08:31)
[2019-07-03] MEDS ORDERED: POTASSIUM CHLORIDE 20 MEQ TAB CR PO ONE (12:00)
--- NOTE | 2019-07-03 19:05 | NUR ---
Complete nursing rounds with morning nurse. Pt alert and oriented to name. Pt lying in bed HOB 45 degrees. Denies pain at this time. Call light within reach. Will continue to monitor.
[2019-07-03] MEDS: INSULIN GLARGINE 100 UNITS/ML VIAL SQ SCH (21:00)
[2019-07-04] VITALS (8 sets, daily range): BP systolic 85–104; BP diastolic 50–55
[2019-07-04] MEDS: LEVOTHYROXINE SODIUM 25 MCG TABLET PO SCH (06:00)
[2019-07-04] MEDS: PIPER-TAZ 3.375 GM 50 ML IV SCH ×4 (06:00→23:03)
--- NOTE | 2019-07-04 06:09 | NUR ---
IM- progress note O/N no events ROS; no f/c/s/N/V/D/WALKER/vision changes/cp/sob/skin rash V/S; revd PE tired appearing anicteric ns1s2 mod bs soft Mild diffuse tenderness; nd no e/t a&ox3; alonso skin dry n. affect labs/meds; revd A/P: Acute Likely Bacterial Gastroenteritis OPAL Metabolic acidosis Dehydration Hx B/L hydronoephrosis DM2 Hypothyroidism PLAN IVF; IV abx PT consult Home meds Prop: heparin/pepcid Dispo; f/u 07/02 check labs 07/03 control BP with BB; check labs; 07/04 IVF; check labs; SNF briana Perez MD, PhD.
--- NOTE | 2019-07-04 06:20 | NUR ---
Pt BP 96/52, alert and oriented. Dr. Perez ordered NS @75 mls/hr.
[2019-07-04] MEDS: SODIUM CHLORIDE 0.9% 1000ML 1,000 ML IV SCH ×2 (06:48→23:03)
--- NOTE | 2019-07-04 06:50 | NUR ---
Rounds completed with morning nurse. Pt lying in bed watching TV. Denies pain or discomfort at this time. No acute distress noted.
--- NOTE | 2019-07-04 06:50 | NUR ---
Rounds completed with morning nurse. Pt lying in bed watching TV. Denies pain or discomfort at this time. No acute distress noted
--- NOTE | 2019-07-04 07:10 | NUR ---
RCD PT AT BED PT IS ALERT AND ORIENTED PT RESTING ON BED NO SIGNS OF ANY DISTRESS NOTED IV PATENT AND RUNNING 75 ML /HRBED LOW AND LOCKED CALL LIGHT IN REACH
[2019-07-04] MEDS: INSULIN LISPRO 100 UNIT/1 ML 3ML VIAL SQ SCH ×4 (07:30→21:51)
[2019-07-04 07:46] LABS: BASOPHILS % 0.2 % (0.0-1.0); EOSINOPHILS # (AUTO) 0.1 (0.0-0.4); EOSINOPHILS % 0.5 % (0.0-6.0); HEMATOCRIT 33.5 % (34.2-44.1); HEMOGLOBIN 10.8 g/dL (12.0-16.0); LYMPHOCYTES # (AUTO) 0.9 (1.0-3.2); MEAN CORPUSCULAR HEMOGLOBIN 26.5 pg (28-32); MEAN CORPUSCULAR HGB CONC 32.2 g/dL (31-35); MEAN CORPUSCULAR VOLUME 82.1 fL (81-99); MONOCYTES # (AUTO) 0.7 (0.2-0.8); MONOCYTES % 5.6 % (4.4-11.3); NEUTROPHILS # (AUTO) 10.8 (2.1-6.9); NEUTROPHILS % 86.3 % (38.7-80.0); PLATELET COUNT 228 x10e3/uL (140-360); RED BLOOD COUNT 4.08 x10e6/uL (3.6-5.1); RED CELL DISTRIBUTION WIDTH 14.6 % (11.7-14.4)
[2019-07-04 08:04] LABS: ANION GAP 12.4 mmol/L (8-16); CALCIUM 8.6 mg/dL (8.4-10.2); CREATININE, SERUM 1.06 mg/dL (0.57-1.11); POTASSIUM 3.4 mmol/L (3.5-5.1)
[2019-07-04] MEDS: ATORVASTATIN 20 MG TAB PO SCH (09:00)
[2019-07-04] MEDS: SENNA-S TABLET PO SCH ×2 (09:00→17:00)
[2019-07-04] MEDS: FERROUS SULFATE 325 MG TAB PEG SCH (09:00)
[2019-07-04] MEDS: METOPROLOL TARTRATE 25 MG TAB PO SCH ×2 (09:00→17:00)
--- NOTE | 2019-07-04 10:41 | NUR ---
PT SIGNED CHOICE FOR [facility], CALLED REP TO [employer]E [employer]AT[employer] MAN PACKET AND PASRR, COMPLETED RTF AND PUT WITH PACKET.
--- NOTE | 2019-07-04 15:42 | NUR ---
SPOKE WITH MICAH [phone] FROM INSURANCE WHOM STATES THE FACILITY SHE CHOSE IS NOT CURRENTLY IN NETWORK, THEY ARE IN PROCESS OF GETTING ANOTHER ONE THAT WILL RENEW ON 07-10, MICAH LOZANO [facility] IS IN NETWORK. SPOKE WITH PATIENT WHOM STATES SHE WOULD MUCH RATHER GO TO [facility]. SPOKE WITH FACILITY WHOM STATES THEY ARE TRYING TO GET A [facility]REW UNTIL THEY RENEW. CALLED AND LEFT MESSAGE WITH MICAH TO RETURN CALL.
--- NOTE | 2019-07-04 17:00 | NUR ---
PT HAD 2 TIMES LOOSE STOOL DURING THE DAY NO WATERY
--- NOTE | 2019-07-04 19:16 | NUR ---
PT RESTING ON BED BED SIDE REPORT GIVEN TO ONCOMING NURSE
[2019-07-04] MEDS: INSULIN GLARGINE 100 UNITS/ML VIAL SQ SCH (21:00)
[2019-07-04] MEDS: ONDANSETRON HCL INJ 2MG/ML 2ML 2 MG/ML VIAL IV PRN ×2 (23:03→23:11)
[2019-07-05 01:16] VITALS: BP 119/65
[2019-07-05 04:45] VITALS: BP 142/55
[2019-07-05] MEDS: PIPER-TAZ 3.375 GM 50 ML IV SCH ×2 (05:55→12:08)
[2019-07-05] MEDS: LEVOTHYROXINE SODIUM 25 MCG TABLET PO SCH (05:55)
--- NOTE | 2019-07-05 06:03 | NUR ---
D/C summary Principal Dx: Acute Likely Bacterial Gastroenteritis OPAL Metabolic acidosis Dehydration Secondary Dx: Hx B/L hydronoephrosis DM2 Hypothyroidism PLAN IVF; IV abx PT consult Home meds Prop: heparin/pepcid Dispo; f/u 07/02 check labs 07/03 control BP with BB; check labs; 07/04 IVF; check labs; SNF eval 07/05 hypoglycemic - reduce insulin; SNF pending d/c to SNF stable f/u pcp 1 week d/c>35mins Hunter Perez MD, PhD.
[2019-07-05] MEDS: INSULIN LISPRO 100 UNIT/1 ML 3ML VIAL SQ SCH ×2 (07:30→12:09)
[2019-07-05 08:00] VITALS: BP 139/64
--- NOTE | 2019-07-05 08:06 | NUR ---
Pt received in bed. Aox4 and able to verbalize needs. Pt sitting in chair for breakfast. 0 s/s of acute distress noted.
[2019-07-05 08:11] VITALS: BP 139/64
[2019-07-05] MEDS: ATORVASTATIN 20 MG TAB PO SCH (08:56)
[2019-07-05] MEDS: METOPROLOL TARTRATE 25 MG TAB PO SCH (08:56)
[2019-07-05] MEDS: SENNA-S TABLET PO SCH (08:56)
[2019-07-05] MEDS: FERROUS SULFATE 325 MG TAB PEG SCH (08:56)
[2019-07-05] MEDS: SODIUM CHLORIDE 0.9% 1000ML 1,000 ML IV SCH (08:59)
--- NOTE | 2019-07-05 10:53 | NUR ---
SPOKE WITH PATIENT ABOUT [facility] NOT GETTING CONTRACT UNTIL 07-10, OFFERED HER [facility]. PT CHOSE [facility], FAXED CLINICALS UPDATED RTF AND PASRR, PACKET IS READY.
[2019-07-05 11:50] VITALS: BP 134/64
--- NOTE | 2019-07-05 12:22 | NUR ---
[facility] FACILITY DISCHARGE INFORMATION PATIENT HAS BEEN ACCEPTED TO: NAME: [facility] ADDRESS:[id number] [facility] [address] ACCEPTING MD: JACOB ROOM:[id number] NURSE CALL REPORT TO: [phone] IMM SIGNED AND OBTAINED (if applicable): IMM THE FOLLOWING DOCUMENTS MUST ACCOMPANY PATIENT FOR TRANSFER: COPIED CHART: PASRR AND PACKET
--- NOTE | 2019-07-05 12:44 | NUR ---
EDUCATED ABOUT IMM, SIGNED, FILED IN CHART, WITH COPY LEFT WITH FAMILY AT BEDSIDE.
--- NOTE | 2019-07-05 14:30 | NUR ---
Pt was discharged to [facility] at this time. Pt was transferred by ambulance and left on stretcher. 0 s/s of acute distress noted at time of discharge. Pt was discharged with left forearm 20g in place, because she will continue IV [facility] at [facility]. Denies any pain at time of discharge.
[2019-07-05] MEDS ORDERED: INSULIN GLARGINE 100 UNITS/ML VIAL SQ SCH (21:00)
== END 2019-07-05 14:29 | DRG 872 ==
LOC: ER 14:48 → ERHOLD 21:14 → MED/SURG2 23:41
PROVIDERS: ADMIT Internal Medicine; ATTEND Internal Medicine
DX: A41.9 Sepsis, unspecified organism (principal); A09 Infectious gastroenteritis and colitis, unspecified; N17.9 Acute kidney failure, unspecified; E87.2 Acidosis; N13.30 Unspecified hydronephrosis; N39.0 Urinary tract infection, site not specified; E86.0 Dehydration; E03.9 Hypothyroidism, unspecified; E78.5 Hyperlipidemia, unspecified; Z88.5 Allergy status to narcotic agent; Z88.8 Allergy status to other drugs, medicaments and biological substances; K59.00 Constipation, unspecified; E11.649 Type 2 diabetes mellitus with hypoglycemia without coma; Z79.4 Long term (current) use of insulin
CPT/HCPCS: 36415; 74019; 80048; 80053; 80061; 81001; 82550; 82553; 82948; 83036; 83735; 84100; 84484; 85025; 87086; 93005; 97139; 99284; J0696; J1815; J2405; J2543; J7030; J7040; J7050

== ENCOUNTER 2021-03-07 17:01 | Emergency (ER) | payer MEDICARE ==
[~2021-03-07] VITALS: Ht 157.5 cm; Wt 72.6 kg
[2021-03-07 19:14] LABS: BASOPHILS % 0.4 % (0.0-1.0); EOSINOPHILS # (AUTO) 0.2 (0.0-0.4); EOSINOPHILS % 1.9 % (0.0-6.0); HEMATOCRIT 39.7 % (34.2-44.1); HEMOGLOBIN 12.4 g/dL (12.0-16.0); LYMPHOCYTES # (AUTO) 1.9 (1.0-3.2); MEAN CORPUSCULAR HEMOGLOBIN 25.9 pg (28-32); MEAN CORPUSCULAR HGB CONC 31.2 g/dL (31-35); MEAN CORPUSCULAR VOLUME 83.1 fL (81-99); MONOCYTES # (AUTO) 0.6 (0.2-0.8); MONOCYTES % 5.5 % (4.4-11.3); NEUTROPHILS # (AUTO) 7.6 (2.1-6.9); NEUTROPHILS % 73.7 % (38.7-80.0); PLATELET COUNT 225 x10e3/uL (140-360); RED BLOOD COUNT 4.78 x10e6/uL (3.6-5.1); RED CELL DISTRIBUTION WIDTH 14.7 % (11.7-14.4)
[2021-03-07 19:32] LABS: ALBUMIN 3.3 g/dL (3.5-5.0); ANION GAP 13.2 mmol/L (8-16); CALCIUM 8.7 mg/dL (8.4-10.2); CREATININE, SERUM 1.12 mg/dL (0.57-1.11); POTASSIUM 4.2 mmol/L (3.5-5.1)
[2021-03-07 20:12] VITALS: BP 142/56
== END 2021-03-07 23:30 | disposition home or self-care (01) ==
LOC: ER 18:15
DX: L03.116 Cellulitis of left lower limb (principal); L03.115 Cellulitis of right lower limb; R60.9 Edema, unspecified; E11.65 Type 2 diabetes mellitus with hyperglycemia; E78.5 Hyperlipidemia, unspecified; E03.9 Hypothyroidism, unspecified
CPT/HCPCS: 36415; 80053; 83880; 85025; 99283; U0002